=== PATIENT | male | born 1995 | race African-American/Black ===

== ENCOUNTER 2017-05-29 21:15 | Emergency (ER) | payer SELFPAY | END 2017-05-29 22:39 | disposition home or self-care (01) | LOC: ERS 21:15 | DX: J06.9 Acute upper respiratory infection, unspecified (principal); F17.210 Nicotine dependence, cigarettes, uncomplicated | CPT/HCPCS: 99283 ==

== ENCOUNTER 2019-07-18 10:13 | Emergency (ER) | payer SELFPAY | END 2019-07-18 11:55 | disposition home or self-care (01) | LOC: ERS 10:13 | DX: J02.8 Acute pharyngitis due to other specified organisms (principal); B97.89 Other viral agents as the cause of diseases classified elsewhere; F17.210 Nicotine dependence, cigarettes, uncomplicated | CPT/HCPCS: 87081; 87430; 99281 ==

== ENCOUNTER 2019-08-26 17:59 | Emergency (ER) | payer SELFPAY ==
--- NOTE | 2019-08-26 18:59 | RAD ---
RIGHT HAND: 08/26/19 Three views. HISTORY: Injury. FINDINGS: There has been prior fixation of the fourth metacarpal with dorsa plate and screws. There is subluxation at the first carpometacarpal joint with a small fragment seen probably from the base of the first metacarpal consistent with fracture fragment. MCP and IP joints unremarkable. No other fracture identified. IMPRESSION: Evidence of subluxation and fracture involving the base of the first metacarpal with subluxation of t he first carpometacarpal joint. POS: [email or web address]
== END 2019-08-26 20:20 | disposition home or self-care (01) ==
LOC: ERS 17:59
DX: S62.231A Other displaced fracture of base of first metacarpal bone, right hand, initial encounter for closed fracture (principal); F17.210 Nicotine dependence, cigarettes, uncomplicated; Y93.71 Activity, boxing; X58.XXXA Exposure to other specified factors, initial encounter
CPT/HCPCS: 26600

== ENCOUNTER 2020-06-18 10:09 | Emergency (ER) | payer SELFPAY | END 2020-06-18 11:31 | disposition left against medical advice (07) | LOC: ERS 10:09 | DX: Z53.21 Procedure and treatment not carried out due to patient leaving prior to being seen by health care provider (principal) ==

== ENCOUNTER 2025-04-20 14:06 | Outpatient (CLI) | payer OTHER | END 2025-04-20 14:07 | disposition home or self-care (01) | LOC: RAD 14:06 | PROVIDERS: ATTEND Family Medicine | DX: M79.644 Pain in right finger(s) (principal); S52.571A Other intraarticular fracture of lower end of right radius, initial encounter for closed fracture ==